=== PATIENT | female | born 1970 | race Caucasian/White ===

== ENCOUNTER 2017-07-19 12:39 | Observation (INO) | payer OTHER ==
[2017-07-19] MEDS ORDERED: Sodium Chloride 0.9% 1000 ML 1,000 ML IV STA (12:59)
--- NOTE | 2017-07-19 13:30 | ERPHSYRPT ---
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 HAD SYNCOPE IN BATHROOM FELL TO FLOOR AND STRUCK HER HEAD, UNSURE OF LOSS OF CONSCIOUSNESS. ALSO HAS LOWER ABDOMINAL PAIN. HAD LAPROSCOPIC SURGERY 7 WEEKS AGO FOR BOWEL OBSTRUCTION. PATIENT ALSO COMPLAINS OF GENERALIZED WEAKNESS AND DIZZINESS. Witnessed: by family Prior Episodes: multiple episodes today Timing/Duration: today Precipitating Factors: diaphoresis, other (DIZZINESS) Context: sitting Loss of Consciousness: prolonged (minutes) Charcter of event(s): collapsed Allergies/Adverse Reactions: pregabalin [From Lyrica] Adverse Reaction (Verified 07/19/17 12:49) Home Medications: Esomeprazole Magnesium [Nexium] 40 mg PO DAILY 09/09/14 [History] Multivitamin [Multivitamins] 1 each PO DAILY 09/09/14 [History] Tramadol HCl 50 mg [Ultram 50 mg] 50 mg PO BID 09/09/14 [History] Alprazolam [Xanax 0.25 mg] 0.5 tab PO HS 12/08/15 [History] Duloxetine HCl [Cymbalta] 90 mg PO DAILY 12/08/15 [History] Hydrochlorothiazide 12.5 mg PO DAILY 12/08/15 [History] Hx Tetanus, Diphtheria Vaccination/Date Given: Yes Hx Influenza Vaccination/Date Given: No Hx Pneumococcal Vaccination/Date Given: No Immunizations Up to Date: Yes - Past Medical History Pertinent Past Medical History: Yes Neurological History: No Pertinent History ENT History: Other Cardiac History: Other Respiratory History: No Pertinent History Endocrine Medical History: No Pertinent History Musculoskeletal History: Fibromyalgia, Osteoarthritis GI Medical History: Ulcer, Other History: Other Psycho-Social History: Anxiety, Depression Female Reproductive Disorders: Endometriosis Other Medical History: hx kidney stones. gastric bypass. DEGEN DIS DISEASE. CONNECTIVE TISSUE DISEASE. left eye legally blind. cardiac ablation- 2007- no problems since may 2015. spinal tumor t-2 t-10 - Past Surgical History Past Surgical History: Yes Neuro Surgical History: No Pertinent History Cardiac: Other Respiratory: No Pertinent History Gastrointestinal: Cholecystectomy Genitourinary: No Pertinent History Musculoskeletal: Other Female Surgical History: Section, Hysterectomy Other Surgical History: TONSILECTOMY, GANGLION CYST REMOVED FROM LEFT ELBOW, CARPAL TUNNEL SURGERY, GASTRIC BYPASS IN 2005. EXPLORATORY LAP. BLADDER SUSPENSION. BENIGN CYSTS REMOVED--NECK,. ANTERIOR CERVICAL SURGERY. cardiac ablation - Social History Smoking Status: Never smoker Exposure to second hand smoke: No Drug Use: none Patient Lives Alone: No - Female History Hx Now: No - Review of Systems Constitutional: No Fever, No Chills Eyes: No Symptoms Ears, Nose, & Throat: No Symptoms Respiratory: No Symptoms, No Cough, No Dyspnea Cardiac: No Symptoms, No Chest Pain, No Edema, No Syncope Abdominal/Gastrointestinal: Abdominal Pain, No Nausea, No Vomiting, No Diarrhea Genitourinary Symptoms: No Symptoms, No Dysuria Musculoskeletal: No Symptoms, No Back Pain, No Neck Pain Skin: No Rash Neurological: No Dizziness, No Focal Weakness, No Sensory Changes Psychological: No Symptoms Endocrine: No Symptoms All Other Systems: Reviewed and Negative Physical Exam - Nursing Vital Signs Nursing Vital Signs: Initial Vital Signs Temperature 97.7 F 07/19/17 12:41 Pulse Rate 72 07/19/17 12:41 Respiratory Rate 20 07/19/17 12:41 Blood Pressure 116/81 07/19/17 12:41 O2 Sat by Pulse Oximetry 98 07/19/17 12:41 Pain Scale Pain Intensity 0 - [place] Coma Scale Best Eye Response ([place]): (4) open spontaneously Best Verbal Response ([place]): (5) oriented Best Motor Response ([place]): (6) obeys commands Jaime Total: 15 - Physical Exam General Appearance: other (SLIGHT LETHARGIC) Eye Exam: bilateral eye: normal inspection, PERRL Ears, Nose, Throat Exam: normal ENT inspection, pharynx normal, moist mucous membranes Neck Exam: normal inspection, non-tender, supple, full range of motion Respiratory: normal breath sounds Cardiovascular: regular rate/rhythm Gastrointestinal: soft, normal bowel sounds, other (INFRAUMBILICAL TENDERNESS) Back Exam: normal inspection, normal range of motion, No CVA tenderness, No vertebral tenderness Extremity Exam: normal inspection, normal range of motion, pelvis stable, No tenderness Peripheral Pulses: carotid (R): 2+, carotid (L): 2+, femoral (R): 2+, femoral (L ): 2+, dorsalis-pedis (R): 2+ administration internship Exam: normal speech, PERRL, No facial droop Coordination/Gait: normal finger to nose Motor/Sensory: no motor deficit, no sensory deficit, no pronator drift DTR: bicep (R): 2+, bicep (L): 2+, tricep (R): 2+, tricep (L): 2+, knee (R): 2+ , knee (L): 2+, ankle (R): 2+, ankle (L): 2+ Skin Exam: normal color, warm, dry, No rash SpO2 Interpretation: normal SpO2: 98 Oxygen Delivery: Room Air - Course EKG Interpreted by Me: RATE, Sinus Rhythm - Radiology Exams Chest X-ray Interpretation: Discussed w/ radiologist, No Infiltrates - CT Exams Head CT Interpretation: Tele-radiologist Report, No/Intracranial Hemorrhag Abdomen/Pelvis CT Interpretation: Discussed w/radiologist (NEW LEFT MID ABDOMINAL SMALL BOWEL AND DISTAL COLONIC /RECTAL BOWEL WALL THICKENING FAVORING INFLAMMATORY PROCESS) Ordered Tests: Active Orders 24 hr Category Date Time Status Up With Assistance ROUTINE Activity 07/19/17 15:25 Ordered Admission/Status Order ROUTINE Care 07/19/17 15:25 Ordered Call Admit Doctor for Orders ON ADMISSION Care 07/19/17 15:26 Ordered Code Status Order ROUTINE Care 07/19/17 15:25 Ordered EKG-ER Only STAT Care 07/19/17 12:59 Active IV Care Q6H Care 07/19/17 15:25 Ordered IV Insertion STAT Care 07/19/17 12:59 Active Oxygen-ED Only NASAL CANNULA 2 lpm Care 07/19/17 13:01 Active Telemetry ROUTINE Care 07/19/17 15:28 Ordered Vital Signs Q4H Care 07/19/17 15:25 Ordered Clear Liquid Diet 07/19/17 Dinner Ordered ABDOMEN AND PELVIS W CONTRAST [CT] Stat Exams 07/19/17 13:03 Completed CHEST 1 VIEW (PORTABLE) Routine Exams 07/19/17 13:58 Completed HEAD WITHOUT CONTRAST [CT] Stat Exams 07/19/17 13:04 Completed AMYLASE Stat Lab 07/19/17 13:28 Received BLOOD CULTURE Stat Lab 07/19/17 13:30 Received CBC W DIFF Stat Lab 07/19/17 13:28 Completed CMP Stat Lab 07/19/17 13:28 Received HCG,QUALITATIVE URINE Stat Lab 07/19/17 12:59 Completed LIPASE Stat Lab 07/19/17 13:28 Received TROPONIN Q3H Lab 07/19/17 13:28 Received TROPONIN Q3H Lab 07/19/17 16:15 Ordered TROPONIN Q3H Lab 07/19/17 19:15 Ordered TROPONIN Q3H Lab 07/19/17 22:15 Ordered TROPONIN Q3H Lab 07/20/17 01:15 Ordered UA W/RFX UR CULTURE Stat Lab 07/19/17 14:30 Completed Urine Triage Profile Stat Lab 07/19/17 12:59 Completed Transfer Order Routine Transfer 07/19/17 Ordered Medication Summary Generic Name Dose Route Start Last Admin Trade Name Rosemary PRN Reason Stop Dose Admin Acetaminophen 650 mg 07/19/17 15:25 Tylenol 325 Mg PO 08/18/17 15:24 Q4H PRN PRN PAIN AND/OR FEVER Duloxetine HCl 90 mg 07/20/17 10:00 Cymbalta 30 Mg Capsule PO 08/19/17 09:59 QAM [facility] Levofloxacin/Dextrose 500 mg in 100 mls @ 100 mls/hr 07/20/17 10:00 Levofloxacin 500mg/100ml D5w IV 08/19/17 09:59 Q24H10 KESHAV Metronidazole 500 mg in 100 mls @ 200 mls/hr 07/19/17 18:00 Flagyl 500 Mg Ivpb IV 08/18/17 17:59 Q6HT [facility] Ondansetron HCl 4 mg 07/19/17 15:29 Zofran 4 Mg/2 Ml Vial IV 08/18/17 15:28 Q6H PRN PRN NAUSEA/VOMITING Discontinued Medications Generic Name Dose Route Start Last Admin Trade Name Freq PRN Reason Stop Dose Admin Sodium Chloride 1,000 mls @ 999 mls/hr 07/19/17 12:59 07/19/17 14:12 Sodium Chloride 0.9% 1000 Ml IV 07/19/17 13:59 999 mls/hr .Q1H1M STA Administration Sodium Chloride Confirm 07/19/17 13:49 Sodium Chloride 0.9% 1000 Ml Administered 07/19/17 13:50 Dose 1,000 mls @ ud .ROUTE .STK-MED ONE Levofloxacin/Dextrose 500 mg in 100 mls @ 100 mls/hr 07/19/17 14:21 07/19/17 14:37 Levofloxacin 500mg/100ml D5w IV 07/19/17 15:20 100 mls/hr STAT STA Administration Levofloxacin/Dextrose Confirm 07/19/17 14:34 Levofloxacin 500mg/100ml D5w Administered 07/19/17 14:35 Dose 500 mg in 100 mls @ ud IV .STK-MED ONE Lab/Rad Data: Laboratory Result Diagrams 07/19/17 13:28 Laboratory Results 07/19/17 07/19/17 07/19/17 Range/Units 14:30 13:28 12:59 WBC 5.7 (4.0-10.5) K/mm3 RBC 3.83 L (4.1-5.4) M/mm3 Hgb 9.1 L (12.0-16.0) gm/dl Hct 31.2 L (35-47) % MCV 81.5 (78-100) fl MCH 23.7 L (26-32) pg MCHC 29.2 L (32-36) g/dl RDW 15.9 H (11.5-14.0) % Plt Count 315 (150-450) K/mm3 MPV 8.9 (6-9.5) fl Gran % 77.8 H (36.0-66.0) % Lymphocytes % 15.8 L (24.0-44.0) % Monocytes % 5.5 (0.0-12.0) % Eosinophils % 0.7 (0.00-5.0) % Basophils % 0.2 (0.0-0.4) % Basophils # 0.01 (0-0.4) Ur Collection Type CLEAN CATCH Urine Color YELLOW (YELLOW) Urine Appearance CLEAR (CLEAR) Urine pH 5.0 (5-6) Ur Specific Lydia 1.005 (1.005-1.025) Urine Protein NEGATIVE (Negative) Urine Ketones NEGATIVE (NEGATIVE) Urine Blood NEGATIVE (0-5) Rickey/ul Urine Nitrite NEGATIVE (NEGATIVE) Urine Bilirubin NEGATIVE (NEGATIVE) Urine Urobilinogen NORMAL (0-1) mg/dL Ur Leukocyte Esterase NEGATIVE (NEGATIVE) Urine Culture Reflexed NO (NO) Urine Glucose NEGATIVE (NEGATIVE) mg/dL Urine HCG, Qual (Negative) Urine Opiates Level NEG. (NEGATIVE) Ur Methadone NEG. (NEGATIVE) Urine Barbiturates NEG. (NEGATIVE) Ur Phencyclidine (PCP) NEG. (NEGATIVE) Urine Amphetamine NEG. (NEGATIVE) U Benzodiazepine Level NEG. (NEGATIVE) Urine Cocaine NEG. (NEGATIVE) Urine Marijuana (THC) NEG. (NEGATIVE) Specimen Received 07/19/17 1430 07/19/17 Range/Units 12:59 WBC (4.0-10.5) K/mm3 RBC (4.1-5.4) M/mm3 Hgb (12.0-16.0) gm/dl Hct (35-47) % MCV (78-100) fl MCH (26-32) pg MCHC (32-36) g/dl RDW (11.5-14.0) % Plt Count (150-450) K/mm3 MPV (6-9.5) fl Gran % (36.0-66.0) % Lymphocytes % (24.0-44.0) % Monocytes % (0.0-12.0) % Eosinophils % (0.00-5.0) % Basophils % (0.0-0.4) % Basophils # (0-0.4) Ur Collection Type Urine Color (YELLOW) Urine Appearance (CLEAR) Urine pH (5-6) Ur Specific Lydia (1.005-1.025) Urine Protein (Negative) Urine Ketones (NEGATIVE) Urine Blood (0-5) Rickey/ul Urine Nitrite (NEGATIVE) Urine Bilirubin (NEGATIVE) Urine Urobilinogen (0-1) mg/dL Ur Leukocyte Esterase (NEGATIVE) Urine Culture Reflexed (NO) Urine Glucose (NEGATIVE) mg/dL Urine HCG, Qual NEGATIVE (Negative) Urine Opiates Level (NEGATIVE) Ur Methadone (NEGATIVE) Urine Barbiturates (NEGATIVE) Ur Phencyclidine (PCP) (NEGATIVE) Urine Amphetamine (NEGATIVE) U Benzodiazepine Level (NEGATIVE) Urine Cocaine (NEGATIVE) Urine Marijuana (THC) (NEGATIVE) Specimen Received - Progress Progress Note: 07/19/17 13:32 ADMINISTERED NORMAL SALINE 1LITER /HR ADMINISTERED LEVAQUIN 500MG IVPB 07/19/17 15:24 Discussed with : Timothy (DISCUSSED WITH DR MOSQUEDA AT 1430 FOR ADMIT) - Departure Time of Disposition: 15:30 Departure Disposition: Observation Clinical Impression: SYNCOPE, ACUTE COLITIS Condition: Stable Critical Care Time: No Critical Care Time(excluding separately billable procedures): 30-74 minutes Referrals: CINTHYA MOSQUEDA MD [Primary Care Provider] -
[2017-07-19 13:33] LABS: BASOPHIL % 0.2 % (0.0-0.4); Basophil (Absolute #) 0.01 (0-0.4); Eosinophil % 0.7 % (0.00-5.0); Eosinophil (Absolute #) 0.04 (0-0.5); Granulocyte Absolute (ANC) 4.42 (1.4-6.9); Granulocytes % 77.8 % (36.0-66.0); Hematocrit 31.2 % (35-47); Hemoglobin 9.1 gm/dl (12.0-16.0); Lymphocytes % 15.8 % (24.0-44.0); Mean Cell Volume 81.5 fl (78-100); Mean Corpuscular Hgb Concent. 29.2 g/dl (32-36); Mean Platelet Volume 8.9 fl (6-9.5); Monocyte (Absolute #) 0.31 (0.0-1.3); Monocytes % 5.5 % (0.0-12.0); Platelet Count 315 K/mm3 (150-450); Red Blood Count 3.83 M/mm3 (4.1-5.4); Red Cell Distribution Width 15.9 % (11.5-14.0); White Blood Count 5.7 K/mm3 (4.0-10.5)
[2017-07-19] MEDS ORDERED: Sodium Chloride 0.9% 1000 ML 1,000 ML ONE (13:49)
[2017-07-19 13:56] LABS: Mean Corpuscular Hemoglobin 23.7 pg (26-32)
--- NOTE | 2017-07-19 14:03 | XRAY ---
Indication: Syncope. Multiple contiguous axial images obtained through the head without contrast. Comparison: January 15, 2013. Again normal appearing brain parenchyma, ventricles, and bony calvarium. Visualized paranasal sinuses and mastoid air cells are clear. Impression: Stable normal CT head without contrast exam. CTDI 51.98
--- NOTE | 2017-07-19 14:06 | XRAY ---
Indication: Cramping, swelling, and shaking. Multiple contiguous axial images obtained through the abdomen and pelvis using 80 cc Isovue 370 contrast only. Comparison: November 17, 2013. Lung bases are clear. Heart is not enlarged. New partially visualized bilateral breast implants. Noncontrasted stomach and bowel loops appear nonobstructed. Again previous gastric bypass surgery, cholecystectomy, and hysterectomy. Normal appendix. There is now mild wall thickening involving the left mid small bowel loops and sigmoid colon/rectum suggesting inflammatory process. Normal ileocecal junction. No free fluid/air. Remaining liver, pancreas, spleen, adrenal glands, kidneys, ureters, bladder, and aorta appear unremarkable. No pathologic retroperitoneal lymphadenopathy. Osseous structures intact with stable T10 vertebral hemangioma and T11/T12 Schmorl nodes. New bilateral paraspinal metallic densities at the T10 level presumed iatrogenic. Impression: New left mid abdomen small bowel and distal colonic/rectal bowel wall thickening favoring inflammatory process, possibly enterocolitis. CT DI 12.86
--- NOTE | 2017-07-19 14:08 | XRAY ---
Indication: Chest/abdomen pain. Comparison: January 15, 2013. Single AP chest again demonstrates normal heart and lungs. Bony thorax intact with new bilateral T10 paraspinal coils and new bilateral breast implants.
[2017-07-19] MEDS ORDERED: Levofloxacin 500MG/100ML D5W 500 MG/100 ML BAG IV STA (14:21)
[2017-07-19] MEDS ORDERED: Levofloxacin 500MG/100ML D5W 500 MG/100 ML BAG IV ONE (14:34)
[2017-07-19 15:03] LABS: Amphetamine,Urine NEG. (NEGATIVE); Barbiturate,Urine NEG. (NEGATIVE); Benzodiazepine,Urine NEG. (NEGATIVE); Cocaine,Urine NEG. (NEGATIVE); Methadone,Urine NEG. (NEGATIVE); Opiate,Urine NEG. (NEGATIVE); PCP,Urine NEG. (NEGATIVE); THC,Urine NEG. (NEGATIVE)
[2017-07-19 15:04] LABS: Appearance CLEAR (CLEAR); Bilirubin NEGATIVE (NEGATIVE); Blood NEGATIVE Ery/ul (0-5); Glucose NEGATIVE (NEGATIVE); Ketones NEGATIVE (NEGATIVE); Leukocyte Esterase NEGATIVE (NEGATIVE); Nitrite NEGATIVE (NEGATIVE); Protein,Urine Dip NEGATIVE (Negative); Specific Gravity 1.005 (1.005-1.025); Urobilinogen NORMAL mg/dL (0-1)
[2017-07-19] MEDS ORDERED: TYLENOL 325 MG PO PRN (15:25)
[2017-07-19] MEDS ORDERED: Zofran 4 MG/2 ML VIAL IV PRN (15:29)
[2017-07-19] MEDS ORDERED: Sodium Chloride 0.9% 1000 ML 1,000 ML IV SCH (15:30)
--- NOTE | 2017-07-19 17:00 | PCM.HP ---
History of Present Illness - Chief Complaint Chief Complaint: SYNCOPE History of Present Illness: is a 46 year old female who had a syncopal episode today, she was fasting to have labs done today, was seen by MAC OPERATOR last week and started on hctz and ordered fasting labs. has had increased pulse, she felt dizzy and lightheaded, stood up and passed out. woke up in the bathroom floor. has had some chest pain since having breast reduction and abdominoplasty 7 weeks ago. sees a second crusher, has chronic anemia. denies blood in the stool, did have low abdominal pain and diarrhea prior to syncope but has longstanding chronic diarrhea.. - Review of Systems Constitutional: No Fever, No Chills Respiratory: No Cough, No Short Of Breath Cardiac: No Chest Pain, No Edema, No Palpitations Abdominal/Gastrointestinal: No Abdominal Pain, No Nausea, No Vomiting, No Diarrhea Genitourinary Symptoms: No Dysuria Skin: No Rash All Other Systems: Reviewed and Negative Medications & Allergies Home Medications: Home Medication List Esomeprazole Magnesium [Nexium] 40 mg PO DAILY 09/09/14 [History Confirmed 07/19] Multivitamin [Multivitamins] 1 each PO DAILY 09/09/14 [History Confirmed ] Tramadol HCl 50 mg [Ultram 50 mg] 50 mg PO BID 09/09/14 [History Confirmed 07/19/17] Duloxetine HCl [Cymbalta] 90 mg PO DAILY 12/08/15 [History Confirmed 07/19/17] Hydrochlorothiazide 12.5 mg PO DAILY 12/08/15 [History Confirmed 07/19/17] Alprazolam [Xanax 0.5 mg] 1 tab PO HS 07/19/17 [History Confirmed 07/19/17] Ibandronate Sodium [Boniva] 150 mg PO UD 07/19/17 [History Confirmed 07/19/17] Leflunomide [Arava] 1 tab PO DAILY 07/19/17 [History Confirmed 07/19/17] Ropinirole HCl 0.5 mg [Requip 0.5 MG] 0.5 mg PO HS PRN 07/19/17 [History Confirmed 07/19/17] Allergies/Adverse Reactions: Allergies Allergy/AdvReac Type Severity Reaction Status Date / Time pregabalin [From Lyrica] AdvReac Verified 07/19/17 12:49 - Past Medical History Past Medical History: Yes Neurological History: No Pertinent History ENT History: Other Cardiac History: Other Respiratory History: No Pertinent History Endocrine Medical History: No Pertinent History Musculoskelatal History: Fibromyalgia, Osteoarthritis GI Medical History: Ulcer, Other History: Other Pyscho-Social History: Anxiety, Depression Reproductive Disorders: Endometriosis Comment: hx kidney stones. gastric bypass. DEGEN DIS DISEASE. CONNECTIVE TISSUE DISEASE. left eye legally blind. cardiac ablation- 2007- no problems since may 2015. spinal tumor t-2 t-10 - Female History Are you now?: No - Past Surgical History Past Surgical History: Yes Neuro Surgical History: No Pertinent History Cardiac History: Other Respiratory Surgery: No Pertinent History GI Surgical History: Cholecystectomy Genitourinary Surgical Hx: No Pertinent History Musculskeletal Surgical Hx: Other Female Surgical History: Section, Hysterectomy Other Surgical History: TONSILECTOMY, GANGLION CYST REMOVED FROM LEFT ELBOW, CARPAL TUNNEL SURGERY, GASTRIC BYPASS IN 2005. EXPLORATORY LAP. BLADDER SUSPENSION. BENIGN CYSTS REMOVED--NECK,. ANTERIOR CERVICAL SURGERY. cardiac ablation - Social History Smoking Status: Never smoker Exposure to second hand smoke: No Alcohol: None Drug Use: none - Physical Exam Vital Signs: Vital Signs - 24 hr Temp Pulse Resp BP Pulse Ox 07/19/17 16:01 98.1 F 72 18 133/83 99 07/19/17 15:59 98.1 F 72 18 133/83 99 07/19/17 15:31 98 07/19/17 14:20 98.2 F 79 18 149/85 100 07/19/17 12:41 97.7 F 72 20 116/81 98 General Appearance: no apparent distress, alert Neurologic Exam: alert, oriented x 3, cooperative, normal mood/affect, nml cerebellar function, nml station & gait, sensation nml, No motor deficits Neck Exam: normal inspection, non-tender, supple, full range of motion Respiratory Exam: normal breath sounds, lungs clear, No respiratory distress Cardiovascular Exam: regular rate/rhythm, normal heart sounds, normal peripheral pulses, other (well healed scars to santhosh breasts) Gastrointestinal/Abdomen Exam: soft, normal bowel sounds, other (well healed transverese scar lower abdomen), No tenderness Skin Exam: normal color, warm, dry, No rash Assessment/Plan (1) Acute colitis Current Visit: Yes Status: Acute Assessment & Plan: on levaquin and flagyl, will need further workup likely after resolution of symptoms. Code(s): K52.9 - NONINFECTIVE GASTROENTERITIS AND COLITIS, UNSPECIFIED (2) Syncope Current Visit: Yes Status: Acute Assessment & Plan: continue serial troponins, initial cmp and troponin ordered but no result in meditech. inquiring with lab Code(s): R55 - SYNCOPE AND COLLAPSE (3) Anemia Current Visit: Yes Status: Acute Assessment & Plan: chronic and stable Code(s): D64.9 - ANEMIA, UNSPECIFIED (4) Dehydration Current Visit: Yes Status: Acute Assessment & Plan: gentle hydration, hold hctz at this time Code(s): E86.0 - DEHYDRATION
[2017-07-19 17:11] LABS: ALBUMIN 3.5 g/dL (3.4-5.0); ALKALINE PHOSPHATASE 102 U/L (46-116); AMYLASE 68 U/L (25-115); ANION GAP 15.8 MEQ/L (5-15); BLOOD UREA NITROGEN 20 mg/dL (9-20); CHLORIDE 102 mEq/L (98-107); Calcium 9.3 mg/dL (8.5-10.1); Carbon Dioxide 24.7 mEq/L (21-32); Creatinine 1 0.97 mg/dl (0.55-1.30); EST GLOMERULAR FILTRATION RATE > 60 ML/MIN; Glucose 154 MG/DL (70-110); LIPASE 312 U/L (73-393); Potassium 3.5 mEq/L (3.5-5.1); SGOT/AST 21 U/L (15-37); SGPT/ALT 20 U/L (12-78); SODIUM 139 mEq/L (136-145); Total Protein 7.4 gm/dL (6.4-8.2)
[2017-07-19] MEDS ORDERED: MEDICATION INTERVENTION MC PRN (17:19)
[2017-07-19] MEDS ORDERED: Requip 0.5 MG PO PRN (17:20)
[2017-07-19] MEDS: FLAGYL 500 MG IVPB 500 MG/100 ML BAG IV SCH ×2 (18:36→23:23)
[2017-07-19] MEDS: Protonix 40MG Tablet PO SCH (18:36)
[2017-07-19] MEDS: ULTRAM 50 MG PO SCH (21:33)
[2017-07-19] MEDS ORDERED: Cymbalta 30 MG Capsule PO SCH (22:00)
[2017-07-19] MEDS ORDERED: xanAX 0.5 MG PO SCH (22:00)
[2017-07-20 06:21] LABS: BASOPHIL % 0.3 % (0.0-0.4); Basophil (Absolute #) 0.01 (0-0.4); Eosinophil % 1.6 % (0.00-5.0); Eosinophil (Absolute #) 0.06 (0-0.5); Granulocyte Absolute (ANC) 1.85 (1.4-6.9); Granulocytes % 47.7 % (36.0-66.0); Hematocrit 26.1 % (35-47); Hemoglobin 7.6 gm/dl (12.0-16.0); Lymphocyte (Absolute #) 1.58 (1.0-4.6); Lymphocytes % 40.8 % (24.0-44.0); Mean Cell Volume 81.3 fl (78-100); Mean Corpuscular Hgb Concent. 29.1 g/dl (32-36); Mean Platelet Volume 9.2 fl (6-9.5); Monocyte (Absolute #) 0.37 (0.0-1.3); Monocytes % 9.6 % (0.0-12.0); Platelet Count 266 K/mm3 (150-450); Red Blood Count 3.21 M/mm3 (4.1-5.4); Red Cell Distribution Width 15.8 % (11.5-14.0); White Blood Count 3.9 K/mm3 (4.0-10.5)
[2017-07-20 06:23] LABS: Mean Corpuscular Hemoglobin 23.6 pg (26-32)
[2017-07-20] MEDS: FLAGYL 500 MG IVPB 500 MG/100 ML BAG IV SCH (06:31)
[2017-07-20 06:34] LABS: ALBUMIN 2.9 g/dL (3.4-5.0); ALKALINE PHOSPHATASE 84 U/L (46-116); ANION GAP 10.4 MEQ/L (5-15); BLOOD UREA NITROGEN 12 mg/dL (9-20); CHLORIDE 109 mEq/L (98-107); Calcium 8.5 mg/dL (8.5-10.1); Carbon Dioxide 26.3 mEq/L (21-32); Creatinine 1 0.74 mg/dl (0.55-1.30); EST GLOMERULAR FILTRATION RATE > 60 ML/MIN; Glucose 99 MG/DL (70-110); MAGNESIUM 1.9 mg/dL (1.8-2.4); Potassium 3.3 mEq/L (3.5-5.1); SGOT/AST 16 U/L (15-37); SGPT/ALT 17 U/L (12-78); SODIUM 142 mEq/L (136-145); Total Protein 6.3 gm/dL (6.4-8.2)
[2017-07-20 06:46] LABS: TROPONIN < 0.017 ng/ml (0.000-0.056)
--- NOTE | 2017-07-20 08:22 | PCM.DS ---
Discharge Summary Date of Admission: 07/19/17 15:50 Admitting Physician: CINTHYA MOSQUEDA Primary Care Provider: CINTHYA MOSQUEDA Allergies Allergies pregabalin [From Lyrica] Adverse Reaction (Verified 07/19/17 12:49) Hospital Summary - Hospital Course Hospital Course: patient had a syncopal episode, was fasting for labwork and had started on hctz 3-4 days prior. was dizzy and lightheaded, had ct findings of enterocolitis. has chronic diarrhea, no abd pain since admission - Vitals & Intake/Output Vital Signs: Vital Signs Temperature 98.1 F 07/20/17 07:37 Pulse Rate 80 07/20/17 07:37 Respiratory Rate 18 07/20/17 07:37 Blood Pressure 138/84 07/20/17 07:37 O2 Sat by Pulse Oximetry 80 L 07/20/17 07:37 Intake & Output: Intake & Output 07/17/17 07/18/17 07/19/17 07/20/17 11:59 11:59 11:59 11:59 Intake Total 2000 Output Total 1600 Balance 400 Weight 60.328 kg - Lab Result Diagrams: 07/20/17 05:40 07/20/17 05:40 Lab Results-Last 24 Hrs: Lab Results-Last 24 Hours 07/19/17 07/19/17 07/19/17 Range/Units 16:37 19:30 22:45 WBC (4.0-10.5) K/mm3 RBC (4.1-5.4) M/mm3 Hgb (12.0-16.0) gm/dl Hct (35-47) % MCV (78-100) fl MCH (26-32) pg MCHC (32-36) g/dl RDW (11.5-14.0) % Plt Count (150-450) K/mm3 MPV (6-9.5) fl Gran % (36.0-66.0) % Lymphocytes % (24.0-44.0) % Monocytes % (0.0-12.0) % Eosinophils % (0.00-5.0) % Basophils % (0.0-0.4) % Basophils # (0-0.4) Sodium (136-145) mEq/L Potassium (3.5-5.1) mEq/L Chloride (98-107) mEq/L Carbon Dioxide (21-32) mEq/L Anion Gap (5-15) MEQ/L BUN (9-20) mg/dL Creatinine (0.55-1.30) mg/dl Estimated GFR ML/MIN Glucose (70-110) MG/DL Calcium (8.5-10.1) mg/dL Magnesium (1.8-2.4) mg/dL Total Bilirubin (0.2-1.0) mg/dL AST (15-37) U/L ALT (12-78) U/L Alkaline Phosphatase (46-116) U/L Troponin I < 0.017 < 0.017 < 0.017 (0.000-0.056) ng/ml Serum Total Protein (6.4-8.2) gm/dL Albumin (3.4-5.0) g/dL 07/20/17 07/20/17 07/20/17 Range/Units 01:15 05:40 05:40 WBC 3.9 L (4.0-10.5) K/mm3 RBC 3.21 L (4.1-5.4) M/mm3 Hgb 7.6 L (12.0-16.0) gm/dl Hct 26.1 L (35-47) % MCV 81.3 (78-100) fl MCH 23.6 L (26-32) pg MCHC 29.1 L (32-36) g/dl RDW 15.8 H (11.5-14.0) % Plt Count 266 (150-450) K/mm3 MPV 9.2 (6-9.5) fl Gran % 47.7 (36.0-66.0) % Lymphocytes % 40.8 (24.0-44.0) % Monocytes % 9.6 (0.0-12.0) % Eosinophils % 1.6 (0.00-5.0) % Basophils % 0.3 (0.0-0.4) % Basophils # 0.01 (0-0.4) Sodium 142 (136-145) mEq/L Potassium 3.3 L (3.5-5.1) mEq/L Chloride 109 H (98-107) mEq/L Carbon Dioxide 26.3 (21-32) mEq/L Anion Gap 10.4 (5-15) MEQ/L BUN 12 (9-20) mg/dL Creatinine 0.74 (0.55-1.30) mg/dl Estimated GFR > 60 ML/MIN Glucose 99 (70-110) MG/DL Calcium 8.5 (8.5-10.1) mg/dL Magnesium 1.9 (1.8-2.4) mg/dL Total Bilirubin 0.20 (0.2-1.0) mg/dL AST 16 (15-37) U/L ALT 17 (12-78) U/L Alkaline Phosphatase 84 (46-116) U/L Troponin I < 0.017 < 0.017 (0.000-0.056) ng/ml Serum Total Protein 6.3 L (6.4-8.2) gm/dL Albumin 2.9 L (3.4-5.0) g/dL Discharge Exam General Appearance: no apparent distress, alert Skin Exam: normal color, warm, dry Eye Exam: PERRL, EOMI, eyes nml inspection Respiratory Exam: normal breath sounds, lungs clear, No respiratory distress Cardiovascular Exam: regular rate/rhythm, normal heart sounds Gastrointestinal/Abdomen Exam: soft, No tenderness, No mass Extremity Exam: normal inspection, normal range of motion Final Diagnosis/Problem List - Final Discharge Diagnosis/Problem (1) Acute colitis Current Visit: Yes Status: Acute Assessment & Plan: no significant complaints on exam or with history (2) Syncope Current Visit: Yes Status: Acute Assessment & Plan: LA ruled out (3) Anemia Current Visit: Yes Status: Acute Assessment & Plan: home on po iron, hx of gastric bypass and has longstanding anemia (4) Dehydration Current Visit: Yes Status: Acute Assessment & Plan: d/c hctz - Discharge Disposition: Home, Self-Care Condition: Stable Prescriptions: New Ferrous Sulfate 325 mg [Feosol 325 mg] 325 mg PO BID #60 tablet Continue Tramadol HCl 50 mg [Ultram 50 mg] 50 mg PO BID Esomeprazole Magnesium [Nexium] 40 mg PO DAILY Multivitamin [Multivitamins] 1 each PO DAILY Duloxetine HCl [Cymbalta] 90 mg PO HS Leflunomide [Arava] 1 tab PO DAILY Ropinirole HCl 0.5 mg [Requip 0.5 MG] 0.5 mg PO HS PRN PRN Reason: Agitation Ibandronate Sodium [Boniva] 150 mg PO UD Alprazolam [Xanax 0.5 mg] 1 tab PO HS Discontinued Hydrochlorothiazide 12.5 mg PO DAILY Follow up with: CINTHYA MOSQUEDA MD [Primary Care Provider] -
[2017-07-20] MEDS ORDERED: NON-FORMULARY ITEM (Esomeprazole Magnesium [Nexium] 40 MG) PO SCH (10:00)
[2017-07-20] MEDS ORDERED: Levofloxacin 500MG/100ML D5W 500 MG/100 ML BAG IV SCH (10:00)
[2017-07-20] MEDS ORDERED: LEFLUNOMIDE PO SCH (10:00)
[2017-07-20] MEDS: Protonix 40MG Tablet PO SCH (10:09)
[2017-07-20] MEDS: ULTRAM 50 MG PO SCH (10:09)
[2017-07-20 12:28] VITALS: BP 149/81; PULSE 82; O2SAT 95
== END 2017-07-20 13:00 | disposition home or self-care (01) ==
LOC: ED 12:39 → MED SURG 15:50
PROVIDERS: ADMIT Family Medicine; ATTEND Family Medicine
DX: D64.9 Anemia, unspecified (principal); E86.0 Dehydration; Z79.899 Other long term (current) drug therapy; M19.90 Unspecified osteoarthritis, unspecified site
CPT/HCPCS: 36000; 36415; 70450; 71045; 74177; 80053; 80307; 81002; 82150; 83690; 83735; 84484; 84703; 85025; 87040; 93005; 93268; 96360; 96361; 96365; 99285; G0378; J1956; A9270-GY

== ENCOUNTER 2021-03-07 18:35 | Emergency (ER) | payer OTHER ==
--- NOTE | 2021-03-07 18:52 | ERPHSYRPT ---
- History of Present Illness Source: patient Exam Limitations: no limitations Occurred: just prior to arrival Quality: constant Extremities Pain Location: wrist: left Modifying Factors: Improves With: nothing Associated Symptoms: none Hx Tetanus, Diphtheria Vaccination/Date Given: Yes Hx Influenza Vaccination/Date Given: No Hx Pneumococcal Vaccination/Date Given: No <GABRIELLE,ZEHRA - Last Filed: 03/07/21 18:52> <SARAH SUMMERS - Last Filed: 03/07/21 19:59> - History of Present Illness Time Seen by Provider: 03/07/21 18:49 Physician History: Patient is 50-year-old female while mowing the grass her lawnmower tripped and all the weight came on her left wrist and she did felt a pop sound and developed some deformity on her left wrist so she came to the emergency room. She denies any other injury. (GABRIELLE,ZEHRA) Allergies/Adverse Reactions: pregabalin [From Lyrica] Adverse Reaction (Verified 03/07/21 18:44) Home Medications: Esomeprazole Magnesium [Nexium] 40 mg PO DAILY 09/09/14 [History] Multivitamin [Multivitamins] 1 each PO DAILY 09/09/14 [History] Tramadol HCl 50 mg [Ultram 50 mg] 50 mg PO TID 09/09/14 [History] Duloxetine HCl [Cymbalta] 90 mg PO HS 12/08/15 [History] ALPRAZolam [Xanax 0.5 mg] 1 tab PO HS PRN 07/19/17 [History] Ropinirole HCl 0.5 mg [Requip 0.5 MG] 0.5 mg PO HS PRN 07/19/17 [History] - Review of Systems Constitutional: No Symptoms Eyes: No Symptoms Ears, Nose, & Throat: No Symptoms Respiratory: No Symptoms Cardiac: No Symptoms Abdominal/Gastrointestinal: No Symptoms Genitourinary Symptoms: No Symptoms Musculoskeletal: Deformity (left wrist), Fall, Joint Swelling <GABRIELLE,ZEHRA - Last Filed: 03/07/21 18:52> - Past Medical History Pertinent Past Medical History: Yes Neurological History: No Pertinent History ENT History: Other Cardiac History: Other Respiratory History: No Pertinent History Endocrine Medical History: No Pertinent History Musculoskeletal History: Fibromyalgia, Osteoarthritis GI Medical History: Ulcer, Other History: Other Psycho-Social History: Anxiety, Depression Female Reproductive Disorders: Endometriosis Other Medical History: hx kidney stones. gastric bypass. DEGEN DIS DISEASE. CONNECTIVE TISSUE DISEASE. left eye legally blind. cardiac ablation- 2007- no problems since may 2015. spinal tumor t-2 t-10 - Past Surgical History Past Surgical History: Yes Neuro Surgical History: No Pertinent History Cardiac: Other Respiratory: No Pertinent History Gastrointestinal: Cholecystectomy Genitourinary: No Pertinent History Musculoskeletal: Other Female Surgical History: Section, Hysterectomy Other Surgical History: TONSILECTOMY, GANGLION CYST REMOVED FROM LEFT ELBOW, CARPAL TUNNEL SURGERY, GASTRIC BYPASS IN 2005. EXPLORATORY LAP. BLADDER SUSPENSION. BENIGN CYSTS REMOVED--NECK,. ANTERIOR CERVICAL SURGERY. cardiac ablation - Social History Smoking Status: Never smoker Exposure to second hand smoke: No Drug Use: none Patient Lives Alone: No - Female History Hx Now: No <GABRIELLE,ZEHRA - Last Filed: 03/07/21 18:52> - Physical Exam General Appearance: no apparent distress Eyes, Ears, Nose, Throat Exam: normal ENT inspection Neck Exam: normal inspection Cardiovascular/Respiratory Exam: chest non-tender Abdominal Exam: non-tender Back Exam: normal inspection Shoulder Exam: normal inspection Elbow/Forearm Exam: normal inspection Wrist Exam: bone tenderness (left wrist), deformity, pain, soft tissue tenderness, swelling <GABRIELLE,ZEHRA - Last Filed: 03/07/21 18:52> - Nursing Vital Signs Nursing Vital Signs: Initial Vital Signs Temperature 97.6 F 03/07/21 18:47 Pulse Rate 90 03/07/21 18:47 Respiratory Rate 18 03/07/21 18:47 Blood Pressure 146/99 03/07/21 18:47 O2 Sat by Pulse Oximetry 98 03/07/21 18:47 Pain Scale Pain Intensity 9 Procedures - Splinting Time of Procedure: 19:57 Location of Splint: Left, Wrist Type of Splint: Orthoglass Short Arm Splint Splint Applied By: ED Nurse Pre-Proc Neuro Vasc Exam: normal Post-Proc Neuro Vasc Exam: neurovascular intact, good alignment (On initial x- ray) <SARAH SUMMERS - Last Filed: 03/07/21 19:59> - Course Nursing assessment & vital signs reviewed: Yes - Radiology Exams Wrist X-ray Interpretation: Reviewed by me <ZEHRA ANTHONY - Last Filed: 03/07/21 18:52> Ordered Tests: Active Orders 24 hr Category Date Time Status Sling Application STAT Care 03/07/21 19:55 Ordered Splint STAT Care 03/07/21 19:55 Ordered WRIST (MIN 3 VIEWS) Stat Exams 03/07/21 18:48 Taken Medication Summary Discontinued Medications Generic Name Dose Route Start Last Admin Trade Name Rosemary PRN Reason Stop Dose Admin Ibuprofen 600 mg 03/07/21 19:54 Motrin 600 Mg PO 03/07/21 19:55 STAT ONE Oxycodone/Acetaminophen 1 tab 03/07/21 19:54 Percocet Tablet 5/325mg PO 03/07/21 19:55 STAT STA - Progress Progress: improved, pain not gone completely <SARAH SUMMERS - Last Filed: 03/07/21 19:59> - Progress Progress Note: 03/07/21 19:56 X-ray left wrist shows nondisplaced distal radius fracture. (SARAH SUMMERS) <ZEHRA ANTHONY - Last Filed: 03/07/21 18:52> - Departure Departure Disposition: Home Critical Care Time: No <SARAH SUMMERS - Last Filed: 03/07/21 19:59> - Departure Clinical Impression: Closed fracture of distal end of radius Condition: Stable Referrals: CINTHYA MOSQUEDA MD [Primary Care Provider] - [facility]-Ortho [phone] (Nondisplaced, closed fracture distal radius on the left) Additional Instructions: Ice pack to area 3 times a day for the next 48 hours. Add ibuprofen 600 mg orally 3 times a day with food for the next 5 days. Follow-up tomorrow morning, 03/08/2021, with [facility] orthopedic clinic at 8 AM for further management of your left distal radius fracture wear sling for comfort.
[2021-03-07 19:48] VITALS: O2SAT 100
[2021-03-07] MEDS ORDERED: MOTRIN 600 MG PO ONE (19:54)
[2021-03-07] MEDS ORDERED: PERCOCET TABLET 5/325MG PO STA ×2 (19:54→19:55)
[2021-03-07] MEDS ORDERED: MOTRIN 600 MG ONE (19:59)
[2021-03-07] MEDS ORDERED: PERCOCET TABLET 5/325MG ONE (19:59)
[2021-03-07 20:20] VITALS: BP 150/103; PULSE 71
--- NOTE | 2021-03-08 08:36 | XRAY ---
Indication: Pain following injury. Comparison: None 3 view left wrist demonstrates mild osteopenia and radiocarpal joint space narrowing. No other bony, articular, or soft tissue abnormalities.
== END 2021-03-07 20:20 | disposition home or self-care (01) ==
LOC: ED 18:35
DX: S52.502A Unspecified fracture of the lower end of left radius, initial encounter for closed fracture (principal); W28.XXXA Contact with powered lawn mower, initial encounter
CPT/HCPCS: 29126; 73110; 99283; A9270-GY

== ENCOUNTER 2024-10-09 16:17 | Emergency (ER) | payer OTHER ==
[2024-10-09 16:27] VITALS: TEMP 97.8
--- NOTE | 2024-10-09 17:09 | ERPHSYRPT ---
- History of Present Illness Time Seen by Provider: 10/09/24 16:46 Source: patient Exam Limitations: no limitations Patient Subjective Stated Complaint: Pt states "I went to the [facility] on the 02 of october and they put me on an antibiotic and a steroid and I just finished the steroid and went to the [facility] today because I am still short of breath and they sent me here." Triage Nursing Assessment: pt presented alert and oriented X 3, skin pwd. Pt ambulates with an upright steady gait. Pt gets tachypneic when she ambulates or speaks much. Pt lung sounds are clear equal bilat. Physician History: 54-year-old female with history of anxiety, atrial fibrillation with ablation not anticoagulated presented in the ER with complaints of flulike symptoms for over 1 week. Patient was evaluated at the [facility] last week and has finished course of antibiotic and steroids but still not feeling back to her normal. Patient reported it started as a sore throat with a negative COVID swabs, was treated for pharyngitis. Now having minimal productive cough of clear mucus with generalized weakness fatigue tiredness to the point that she can get short of breath with moving from 1 room to another and has to rest to catch her breath. Patient also reports having similar symptoms last time when she had a COVID. No fever or chills reported. Denies any chest pain or palpitations. Allergies/Adverse Reactions: pregabalin [From Lyrica] Adverse Reaction (Verified 09/11/24 08:21) Home Medications: Esomeprazole Magnesium [Nexium] 40 mg PO DAILY 09/09/14 [History] Multivitamin [Multivitamins] 1 each PO DAILY 09/09/14 [History] Tramadol HCl 50 mg [Ultram 50 mg] 50 mg PO TID 09/09/14 [History] Duloxetine HCl [Cymbalta] 90 mg PO HS 12/08/15 [History] ALPRAZolam [Xanax 0.5 mg] 1 tab PO HS PRN 07/19/17 [History] Ropinirole HCl 0.5 mg [Requip 0.5 MG] 0.5 mg PO HS PRN 07/19/17 [History] Budesonide [Budesonide EC] 3 mg PO BID 06/26/23 [History] Atomoxetine HCl 80 mg PO DAILY 10/09/24 [History] Denosumab 60 mg [Prolia 60 mg Injection] 60 mg SQ UD 10/09/24 [History] Infliximab [Remicade Injection] 100 mg IV UD 10/09/24 [History] buPROPion HCL [Wellbutrin Xl] 300 mg PO DAILY 10/09/24 [History] Hx Tetanus, Diphtheria Vaccination/Date Given: Yes Hx Influenza Vaccination/Date Given: Yes Hx Pneumococcal Vaccination/Date Given: No Immunizations Up to Date: No Travel Risk - International Travel Have you traveled outside of the country in past 3 weeks: No - Emerging Infectious Disease Symptoms: Shortness of Breath - Review of Systems Constitutional: Fatigue, Weakness Eyes: No Symptoms Ears, Nose, & Throat: Throat Pain, Throat Swelling Respiratory: Cough Cardiac: No Symptoms Abdominal/Gastrointestinal: No Symptoms Genitourinary Symptoms: No Symptoms Musculoskeletal: No Symptoms Skin: No Symptoms Neurological: No Symptoms Endocrine: No Symptoms Hematologic/Lymphatic: No Symptoms Immunological/Allergic: No Symptoms - Past Medical History Pertinent Past Medical History: Yes Neurological History: No Pertinent History ENT History: Other Cardiac History: Arrhythmia Respiratory History: No Pertinent History Endocrine Medical History: No Pertinent History Musculoskeletal History: Osteoporosis, Rheumatoid Arthritis GI Medical History: Ulcer, Other History: Other Psycho-Social History: Anxiety, Depression Female Reproductive Disorders: Endometriosis Other Medical History: DX: CROHN'S, OCCIPTIAL NEURALGIA, GERD, ANXIETY, DEPRESSION. RECEIVES REMICADE EVERY 6 WEEKS FOR CROHN'S AND RA. - Past Surgical History Past Surgical History: Yes Neuro Surgical History: No Pertinent History Cardiac: Other Respiratory: No Pertinent History Gastrointestinal: Cholecystectomy Genitourinary: No Pertinent History Musculoskeletal: Other Female Surgical History: Section, Hysterectomy Other Surgical History: TONSILECTOMY, GANGLION CYST REMOVED FROM LEFT ELBOW, CARPAL TUNNEL SURGERY, GASTRIC BYPASS IN 2005. EXPLORATORY LAP. BLADDER SUSPENSION. BENIGN CYSTS REMOVED--NECK,. ANTERIOR CERVICAL SURGERY. cardiac ablation. tummy tuck. breast reduction - Female History Hx Last Menstrual Period: hysterectomy Hx Now: No - Social History Smoking Status: Never smoker Exposure to second hand smoke: No Drug Use: none - Social Determinants of Health Will the patient participate in the screening: Yes Do you worry about a steady place to live?: No Do you have any problems with any of the following?: No known problems In the past 12 months,have you had to go without utilities?: No Transportation Issues: No Has anyone in your support network made you feel unsafe?: No Have you or anyone in your house had to go w/o enough food: No - Nursing Vital Signs Nursing Vital Signs: Initial Vital Signs Pulse Rate 83 10/09/24 16:17 Respiratory Rate 17 10/09/24 16:17 Blood Pressure 119/80 10/09/24 16:17 O2 Sat by Pulse Oximetry 98 10/09/24 16:17 Pain Scale Pain Intensity 0 - Physical Exam General Appearance: no apparent distress, alert, anxiety Eye Exam: PERRL/EOMI Ears, Nose, Throat Exam: pharyngeal erythema Neck Exam: normal inspection, non-tender, supple, full range of motion Respiratory Exam: normal breath sounds, lungs clear Cardiovascular Exam: regular rate/rhythm, normal heart sounds Gastrointestinal/Abdomen Exam: soft, normal bowel sounds, No tenderness Back Exam: normal inspection, normal range of motion Extremity Exam: normal inspection, normal range of motion Neurologic Exam: alert, oriented x 3, cooperative Skin Exam: normal color SpO2 Interpretation: normal SpO2: 99 O2 Delivery: Room Air - Course EKG Interpreted by Me: RATE (80), Sinus Rhythm, NORMAL AXIS, NORMAL INTERVALS, NORMAL QRS Ordered Tests: Active Orders 24 hr Category Date Time Status EKG-ER Only STAT Care 10/09/24 17:06 Active IV Insertion STAT Care 10/09/24 17:06 Active CHEST 1 VIEW (PORTABLE) Stat Exams 10/09/24 16:46 Taken BLOOD CULTURE Stat Lab 10/09/24 17:11 Received CBC W DIFF Stat Lab 10/09/24 16:46 Completed CMP Stat Lab 10/09/24 17:05 Completed D-DIMER QUANTITATIVE Stat Lab 10/09/24 17:05 Completed Lactic Acid Stat Lab 10/09/24 17:20 Completed MAGNESIUM Stat Lab 10/09/24 17:05 Completed NT PRO BNPII Stat Lab 10/09/24 17:05 Completed TROPONIN Q4H Lab 10/09/24 17:05 Completed TROPONIN Q4H Lab 10/09/24 21:00 Ordered TROPONIN Q4H Lab 10/10/24 01:00 Ordered Respiratory Therapy Assessment DAILY RT 10/09/24 17:16 Active Medication Summary Generic Name Dose Route Start Last Admin Trade Name Freq PRN Reason Stop Dose Admin Sodium Chloride 1,000 mls @ 999 mls/hr 10/09/24 17:49 10/09/24 17:53 Sodium Chloride 0.9% 1000 Ml IV 10/09/24 18:49 999 mls/hr .Q1H1M STA Administration Discontinued Medications Generic Name Dose Route Start Last Admin Trade Name Jeremyq PRN Reason Stop Dose Admin Albuterol/Ipratropium 3 ml 10/09/24 17:06 10/09/24 17:14 Ipratropium/Albuterol Sulfate 3 Ml Ampul.Neb IH 10/09/24 17:07 3 ml STAT ONE Administration Albuterol/Ipratropium Confirm 10/09/24 17:10 Ipratropium/Albuterol Sulfate 3 Ml Ampul.Neb Administered 10/09/24 17:11 Dose 3 ml IH .STK-MED ONE Sodium Chloride Confirm 10/09/24 17:51 Sodium Chloride 0.9% 1000 Ml Administered 10/09/24 17:52 Dose 1,000 mls @ ud .ROUTE .STK-MED ONE Lab/Rad Data: Laboratory Result Diagrams 10/09/24 16:46 10/09/24 17:05 Laboratory Results 10/09/24 10/09/24 10/09/24 Range/Units 17:20 17:11 17:05 WBC (3.98-10.04) x10^3/uL RBC (3.93-5.22) x10^6/uL Hgb (11.2-15.7) g/dL Hct (34.1-44.9) % MCV (79.4-94.8) fL MCH (25.6-32.2) pg MCHC (32.2-35.5) g/dL RDW (11.7-14.4) % Plt Count (182-369) x10^3/uL MPV (9.4-12.3) fL Gran % (34.0-71.1) % Immature Gran % (Auto) (0.001-0.429) % Nucleat RBC Rel Count (0.00-0.2) % Eos # (Auto) (0.04-0.36) x10^3/uL Immature Gran # (Auto) (0.001-0.031) x10^3u/L Absolute Lymphs (auto) (1.18-3.74) x10^3/uL Absolute Monos (auto) (0.24-0.86) x10^3/uL Absolute Nucleated RBC (0.00-0.012) x10^3u/L Lymphocytes % (19.3-51.7) % Monocytes % (4.7-12.5) % Eosinophils % (0.7-5.8) % Basophils % (0.1-1.2) % Absolute Granulocytes (1.56-6.13) x10^3/uL Basophils # (0.01-0.08) x10^3/uL D-Dimer < 0.19 (0.0-0.50) mg/L Sodium (135-145) mmol/L Potassium (3.5-5.1) mmol/L Chloride (98-107) mmol/L Carbon Dioxide (22-30) mmol/L Anion Gap (5-15) MEQ/L BUN (7-17) mg/dL Creatinine (0.52-1.04) mg/dL Estimated GFR ML/MIN Glucose (74-106) mg/dL Lactic Acid 1.3 (0.4-2.0) Calcium (8.4-10.2) mg/dL Magnesium (1.6-2.3) mg/dL Total Bilirubin (0.2-1.3) mg/dL AST (14-36) U/L ALT (0-35) U/L Alkaline Phosphatase (38-126) U/L Troponin I (0.000-0.033) ng/mL NT-Pro-B Natriuret Pep (<300) pg/mL Serum Total Protein (6.3-8.2) g/dL Albumin (3.5-5.0) g/dL Influenza Type A Ag NEGATIVE (NEGATIVE) Influenza Type B Ag NEGATIVE (NEGATIVE) RSV (PCR) NEGATIVE (NEGATIVE) SARS-CoV-2 (PCR) NEGATIVE (NEGATIVE) 10/09/24 10/09/24 10/09/24 Range/Units 17:05 17:05 16:46 WBC 7.8 (3.98-10.04) x10^3/uL RBC 4.01 (3.93-5.22) x10^6/uL Hgb 13.0 (11.2-15.7) g/dL Hct 39.7 (34.1-44.9) % MCV 99.0 H (79.4-94.8) fL MCH 32.4 H (25.6-32.2) pg MCHC 32.7 (32.2-35.5) g/dL RDW 12.7 (11.7-14.4) % Plt Count 278 (182-369) x10^3/uL MPV 9.0 L (9.4-12.3) fL Gran % 61.0 (34.0-71.1) % Immature Gran % (Auto) 0.3 (0.001-0.429) % Nucleat RBC Rel Count 0.0 (0.00-0.2) % Eos # (Auto) 0.07 (0.04-0.36) x10^3/uL Immature Gran # (Auto) 0.02 (0.001-0.031) x10^3u/L Absolute Lymphs (auto) 2.40 (1.18-3.74) x10^3/uL Absolute Monos (auto) 0.51 (0.24-0.86) x10^3/uL Absolute Nucleated RBC 0.00 (0.00-0.012) x10^3u/L Lymphocytes % 30.7 (19.3-51.7) % Monocytes % 6.5 (4.7-12.5) % Eosinophils % 0.9 (0.7-5.8) % Basophils % 0.6 (0.1-1.2) % Absolute Granulocytes 4.77 (1.56-6.13) x10^3/uL Basophils # 0.05 (0.01-0.08) x10^3/uL D-Dimer (0.0-0.50) mg/L Sodium 137 (135-145) mmol/L Potassium 4.4 (3.5-5.1) mmol/L Chloride 106 (98-107) mmol/L Carbon Dioxide 20 L (22-30) mmol/L Anion Gap 16.2 H (5-15) MEQ/L BUN 30 H (7-17) mg/dL Creatinine 1.11 H (0.52-1.04) mg/dL Estimated GFR 59.4 ML/MIN Glucose 94 (74-106) mg/dL Lactic Acid (0.4-2.0) Calcium 9.5 (8.4-10.2) mg/dL Magnesium 2.0 (1.6-2.3) mg/dL Total Bilirubin 0.40 (0.2-1.3) mg/dL AST 71 H (14-36) U/L ALT 103 H (0-35) U/L Alkaline Phosphatase 94 (38-126) U/L Troponin I < 0.012 (0.000-0.033) ng/mL NT-Pro-B Natriuret Pep 107 (<300) pg/mL Serum Total Protein 6.8 (6.3-8.2) g/dL Albumin 4.3 (3.5-5.0) g/dL Influenza Type A Ag (NEGATIVE) Influenza Type B Ag (NEGATIVE) RSV (PCR) (NEGATIVE) SARS-CoV-2 (PCR) (NEGATIVE) - Progress Progress: improved, re-examined Air Movement: good Progress Note: 10/09/24 18:49 54-year-old is evaluated in the ER for URI symptoms which started almost a week ago and now having cough with some difficulty breathing. Patient has finished course of steroid and antibiotics. She is not in any distress, oxygen saturation around 99% with no tachypnea or tachycardia. EKG is sinus rhythm with no acute ischemic changes and negative troponin. Normal white count, chemistries fairly unremarkable with some element of dehydration, negative D-dimers. Chest x-ray is negative for any acute cardiopulmonary findings interpreted by me, pending official report. She is given DuoNeb and fluids, feeling better on reevaluation. I believe patient has postviral syndrome which could have been COVID. Recommended symptomatic/supportive care. Will give her inhaler to go home, do not think patient needs another round of antibiotic of steroid, recommended outpatient follow-up. Discussed signs symptoms of worsening needing return to ER which she seems understanding. Stable for discharge. Complexity of problems addressed: Moderate acute Complexity of data reviewed/analyzed,: Moderate Risk of complication: Low risk Blood Culture(s) Obtained: Yes Antibiotics given: No Counseled pt/family regarding: lab results, diagnosis, rad results Medical Desision Making - Diagnostic Testing Diagnostic test were ordered, analyzed, and reviewed by me: Yes Radiological Interpretation: Interpreted by me, Reviewed by me - Risk of complications The pt has a mod risk of morbidity or mortality based on: Need for prescription drug management - Departure Departure Disposition: Home Clinical Impression: Dyspnea, Post-viral cough syndrome Condition: Stable Critical Care Time: No Referrals: CINTHYA MOSQUEDA MD [Primary Care Provider, [facility]] - Follow up with PCP 1 day Instructions: Shortness of Breath (Dyspnea) (DC) Additional Instructions: Use inhaler as needed. Drink plenty of fluids. Follow-up with primary care for reevaluation. Return to ER for worsening shortness of breath or if having chest pain palpitation/fever chills etc. Prescriptions: Albuterol Sulfate [Albuterol Sulfate Hfa] 8.5 gm IH Q6H PRN 7 Days #1 inh PRN Reason: Cough
[2024-10-09] MEDS ORDERED: DUONEB 0.5-3 MG/3 ml Neb IH ONE (17:10)
[2024-10-09] MEDS: DUONEB 0.5-3 MG/3 ml Neb IH ONE (17:14)
[2024-10-09 17:19] LABS: Absolute Neutrophil Ct (ANC) 4.77 x10^3/uL (1.56-6.13); BASOPHIL % 0.6 % (0.1-1.2); Basophil (Absolute #) 0.05 x10^3/uL (0.01-0.08); Eosinophil % 0.9 % (0.7-5.8); Eosinophil (Absolute #) 0.07 x10^3/uL (0.04-0.36); Hematocrit 39.7 % (34.1-44.9); IMMATURE GRAN # 0.02 x10^3u/L (0.001-0.031); IMMATURE GRAN % 0.3 % (0.001-0.429); Lymphocytes % 30.7 % (19.3-51.7); Mean Corpuscular Hemoglobin 32.4 pg (25.6-32.2); Mean Corpuscular Hgb Concent. 32.7 g/dL (32.2-35.5); Monocyte (Absolute #) 0.51 x10^3/uL (0.24-0.86); Monocytes % 6.5 % (4.7-12.5); Platelet Count 278 x10^3/uL (182-369); Red Blood Count 4.01 x10^6/uL (3.93-5.22); Red Cell Distribution Width 12.7 % (11.7-14.4); White Blood Count 7.8 x10^3/uL (3.98-10.04)
[2024-10-09 17:34] LABS: ALBUMIN 4.3 g/dL (3.5-5.0); ANION GAP 16.2 MEQ/L (5-15); BILIRUBIN,TOTAL 0.4 mg/dL (0.2-1.3); Calcium 9.5 mg/dL (8.4-10.2); Creatinine 1 1.11 mg/dL (0.52-1.04); EST GLOMERULAR FILTRATION RATE 59.4 ML/MIN; Potassium 4.4 mmol/L (3.5-5.1); Total Protein 6.8 g/dL (6.3-8.2)
[2024-10-09 17:48] LABS: NT PRO BNPII 107 pg/mL (<300); TROPONIN < 0.012 ng/mL (0.000-0.033)
[2024-10-09] MEDS ORDERED: Sodium Chloride 0.9% 1000 ML 1,000 ML ONE (17:51)
[2024-10-09] MEDS: Sodium Chloride 0.9% 1000 ML 1,000 ML IV STA (17:53)
[2024-10-09 17:57] LABS: INFLUENZA A NEGATIVE (NEGATIVE); INFLUENZA B NEGATIVE (NEGATIVE); RESPIRATORY SYNCTIAL VIRUS NEGATIVE (NEGATIVE); SARS-CoV-2 Xpert Express NEGATIVE (NEGATIVE)
[2024-10-09 19:13] VITALS: BP 127/88; PULSE 82; RESP 24; O2SAT 100
--- NOTE | 2024-10-09 19:46 | XRAY ---
Indication: Short of breath. Comparison: November 22, 2018 Portable chest again demonstrates normal heart and lungs. Bony thorax intact again with mild dextroscoliosis, lower cervical fusion, and bilateral T10 paraspinal coils. No new/acute findings.
== END 2024-10-09 19:19 | disposition home or self-care (01) ==
LOC: ED 16:17
DX: G93.31 Postviral fatigue syndrome (principal); R05.9 Cough, unspecified; R06.00 Dyspnea, unspecified; R53.1 Weakness; Z79.899 Other long term (current) drug therapy
CPT/HCPCS: 0241U; 36415; 71045; 80053; 83605; 83735; 83880; 84484; 85025; 85379; 87040; 93005; 94640; 96360; 99285; 99284; A9270-GY